=== PATIENT | female | born 2000 | race African-American/Black ===

== ENCOUNTER 2025-05-29 10:16 | Emergency (ER) | payer OTHER ==
[~2025-05-29] VITALS: Ht 165.1 cm; Wt 64.3 kg
[~2025-05-29 10:16] MED LIST: AMOX875T2 PO; IBUP600T42 PO
[2025-05-29 11:14] LABS: KETONE, URINE AUTO RFX NEGATIVE (NEGATIVE); LEUKOCYTE ESTERASE UR AUTO RFX NEGATIVE (NEGATIVE); MUCUS, URINE RFX SMALL (NEGATIVE); NITRITE, URINE AUTO RFX NEGATIVE (NEGATIVE); RBC, URINE AUTO RFX 0 /HPF (0-3); SQUAM EPITHELIAL CELL UR AURFX 2 /HPF (0-6); WBC, URINE AUTO RFX 2 /HPF (0-3)
[2025-05-29] MEDS ORDERED: VALA1TAB5 PO (11:56)
[2025-05-29 12:19] LABS: Trichomonas vaginalis (AMP) NOT DETECTED (NEGATIVE)
[2025-05-29 12:43] LABS: GC DNA AMPLIFICATION NEGATIVE (NEGATIVE)
[2025-05-29 13:05] VITALS: BP 116/66; TEMP 97.1; O2SAT 100
== END 2025-05-29 13:07 | disposition home or self-care (01) ==
LOC: M ED 10:16
DX: A60.00 Herpesviral infection of urogenital system, unspecified (principal); Z79.1 Long term (current) use of non-steroidal anti-inflammatories (NSAID); Z79.2 Long term (current) use of antibiotics; Z79.899 Other long term (current) drug therapy

== ENCOUNTER 2025-07-18 08:41 | Emergency (ER) | payer OTHER ==
[~2025-07-18] VITALS: Ht 162.6 cm; Wt 63.6 kg
[~2025-07-18 08:41] MED LIST changes: +VALA1TAB5 PO
[2025-07-18] MEDS ORDERED: VITA100T59 PO (08:56)
[2025-07-18] MEDS ORDERED: VITAD400CA FT (08:56)
[2025-07-18 09:39] LABS: KETONE, URINE AUTO RFX NEGATIVE (NEGATIVE); NITRITE, URINE AUTO RFX NEGATIVE (NEGATIVE); RBC, URINE AUTO RFX TNTC /HPF (0-3); SQUAM EPITHELIAL CELL UR AURFX 1 /HPF (0-6)
[2025-07-18 09:40] LABS: LEUKOCYTE ESTERASE UR AUTO RFX TRACE (NEGATIVE); WBC, URINE AUTO RFX 16 /HPF (0-3)
[2025-07-18 10:47] LABS: URINE PREG TEST NEGATIVE (NEGATIVE)
[2025-07-18 12:48] LABS: GC DNA AMPLIFICATION NEGATIVE (NEGATIVE)
[2025-07-18] MEDS ORDERED: METR-265 PO (13:41)
[2025-07-18 14:10] VITALS: BP 122/59; TEMP 97.9; O2SAT 100
== END 2025-07-18 14:11 | disposition home or self-care (01) ==
LOC: M ED 08:41
DX: N76.0 Acute vaginitis (principal); Z79.899 Other long term (current) drug therapy

== ENCOUNTER 2025-08-29 12:47 | Emergency (ER) | payer OTHER ==
[~2025-08-29] VITALS: Ht 162.6 cm; Wt 65.8 kg
[~2025-08-29 12:47] MED LIST changes: +METR-265 PO; +VITA100T59 PO; +VITAD400CA FT
[2025-08-29 18:32] VITALS: BP 111/61; TEMP 98.4; O2SAT 100
== END 2025-08-29 18:34 | disposition home or self-care (01) ==
LOC: M ED 12:47
DX: O20.0 Threatened abortion (principal); Z3A.08 8 weeks gestation of pregnancy; Z79.899 Other long term (current) drug therapy

== ENCOUNTER 2025-09-21 09:34 | Emergency (ER) | payer OTHER ==
[~2025-09-21] VITALS: Ht 162.6 cm; Wt 68.0 kg
[2025-09-21] MEDS ORDERED: prenatal (09:50)
[2025-09-21 11:40] LABS: KETONE, URINE AUTO RFX NEGATIVE (NEGATIVE); LEUKOCYTE ESTERASE UR AUTO RFX NEGATIVE (NEGATIVE); NITRITE, URINE AUTO RFX NEGATIVE (NEGATIVE); RBC, URINE AUTO RFX 1 /HPF (0-3); SQUAM EPITHELIAL CELL UR AURFX 1 /HPF (0-6); WBC, URINE AUTO RFX 2 /HPF (0-3)
[2025-09-21 11:42] LABS: BASO # 0.1 10^3/uL (0.0-0.2); BASO % 0.8 % (0.0-1.0); EOS # 0.3 10^3/uL (0.0-0.5); EOS % 3.1 % (0.0-3.0); LYMPH # 2.9 10^3/uL (1.5-5.0); LYMPH % 28.2 % (24.0-44.0); MONO # 1.1 10^3/uL (0.0-0.8); MONO % 10.6 % (2.0-8.0); NEUTROPHILS # 6.0 10^3/uL (1.5-8.5); NEUTROPHILS % 57.1 % (36.0-66.0); PLATELET COUNT, AUTOMATED 359 10^3/uL (150-450)
[2025-09-21 12:11] LABS: ALT/SGPT 29 U/L (7.0-40); AST/SGOT 19 U/L (<34); CALCIUM LEVEL 9.2 MG/DL (8.5-10.1); CARBON DIOXIDE LEVEL 28 MMOL/L (20-31); CHLORIDE LEVEL 99 MMOL/L (98-107); CREATININE FOR GFR 0.61 MG/DL (0.55-1.30); GLOMERULAR FILTRATION RATE > 90.0 (>60); POTASSIUM SERUM 3.7 MMOL/L (3.5-5.1); SODIUM LEVEL 134 MMOL/L (136-145)
[2025-09-21] MEDS: ONDANSETRON 4MG/2ML VIAL IV ONE (12:14)
[2025-09-21] MEDS: NS (Normal Saline) 0.9% 1,000 ML IV ONE (12:14)
[2025-09-21 12:28] LABS: MAGNESIUM LEVEL 1.9 MG/DL (1.8-2.4)
[2025-09-21 12:32] LABS: FREE T4 1.11 NG/DL (0.89-1.76)
[2025-09-21 12:47] VITALS: TEMP 98.4; O2SAT 100
[2025-09-21 13:27] VITALS: BP 102/70
[2025-09-21] MEDS ORDERED: UNIS25TA3 PO (13:41)
[2025-09-21] MEDS ORDERED: PYRI25TA2 PO (13:41)
== END 2025-09-21 13:48 | disposition home or self-care (01) ==
LOC: M ED 09:34
DX: O26.891 Other specified pregnancy related conditions, first trimester (principal); R55 Syncope and collapse; O21.0 Mild hyperemesis gravidarum; I49.1 Atrial premature depolarization; Z79.899 Other long term (current) drug therapy; Z3A.01 Less than 8 weeks gestation of pregnancy
CPT/HCPCS: 80048; 80076; 81001; 83690; 83735; 84439; 84443; 84702; 85025; 93005; 96361; 96374; 99284; J2405